=== PATIENT | female | born 1985 | race Asian ===

== ENCOUNTER 2024-05-29 06:16 | Day surgery (SDC) | payer OTHER ==
[2024-05-29 06:48] LABS: HCG UR QUAL NEGATIVE
[2024-05-29] MEDS: LACTATED RINGERS 1,000 ML IV ONE (06:53)
[2024-05-29] MEDS: ACETAMINOPHEN 325 MG TABLET PO ONE (06:54)
[2024-05-29] MEDS ORDERED: BUPIVACAINE 0.5% PF 10 ML VIAL ONE (07:06)
[2024-05-29] MEDS ORDERED: POTASSIUM IODIDE/IODINE 14 ML SOLUTION ONE (07:06)
[2024-05-29] MEDS ORDERED: PROPOFOL 200 MG/20 ML VIAL IVP ONE (07:09)
[2024-05-29] MEDS ORDERED: LIDOCAINE-PF 2% 10 ML AMP SUBQ ONE (07:09)
[2024-05-29] MEDS ORDERED: MIDAZOLAM 2 MG/2 ML VIAL ONE (07:09)
[2024-05-29] MEDS ORDERED: fentaNYL 100 MCG/2 ML VIAL ONE (07:10)
[2024-05-29] MEDS ORDERED: BUPIVACAINE 0.5%-EPI 1:200000 PF 10 ML VIAL ONE (07:12)
[2024-05-29] MEDS ORDERED: ATROPINE ABBOJECT 1 MG/10 ML SYRINGE IVP PRN (07:30)
[2024-05-29] MEDS ORDERED: fentaNYL 100 MCG/2 ML VIAL IVP PRN (07:30)
[2024-05-29] MEDS ORDERED: METOCLOPRAMIDE 10 MG/2 ML VIAL IVP PRN (07:30)
[2024-05-29] MEDS ORDERED: ePHEDrine 50 MG/ML VIAL IVP PRN (07:30)
[2024-05-29] MEDS ORDERED: NALOXONE 0.4 MG/ML VIAL IVP PRN (07:30)
[2024-05-29] MEDS ORDERED: ONDANSETRON 4 MG/2 ML VIAL IVP PRN (07:30)
[2024-05-29] MEDS ORDERED: HYDROmorphone 0.5 MG/0.5 ML SYRINGE IVP PRN (07:30)
[2024-05-29] MEDS ORDERED: MORPHINE 2 MG/ML CARPUJECT IVP PRN (07:30)
--- NOTE | 2024-05-29 07:30 | ANESTHESIA ---
Pre-Anesthesia VS, & Labs - Diagnosis cin2 - Procedure LEEP Vital Signs: Temp Pulse Resp BP Pulse Ox O2 Flow Rate 36.3 C L 67 23 111/79 97 05/29/24 06:55 05/29/24 06:55 05/29/24 06:55 05/29/24 06:55 05/29/24 06:55 Height: 5 ft 2 in Weight (kg): 95.5 kg Body Mass Index: 38.5 BMI Classification: Obese - NPO >8 hours - Is Patient ?: No - Lab Results Current Lab Results: Laboratory Tests 05/29/24 07:10: POC Whole Bld Glucose 141 H Lab results reviewed: Yes Home Medications and Allergies Home Medications: Ambulatory Orders Methylphenidate HCl 20 mg PO DAILY PRN 05/24/24 Semaglutide [Ozempic] 2 mg SUBQ OAW 05/24/24 metFORMIN [Glucophage] 500 mg PO DAILY 05/24/24 Methylphenidate HCl 20 mg PO DAILY PRN 05/24/24 Semaglutide [Ozempic] 2 mg SUBQ OAW 05/24/24 metFORMIN [Glucophage] 500 mg PO DAILY 05/24/24 Allergies/Adverse Reactions: Allergies Allergy/AdvReac Type Severity Reaction Status Date / Time amoxicillin Allergy Rash Verified 05/24/24 11:22 cephalexin [From Keflex] Allergy Rash Verified 05/24/24 11:22 melon Allergy Rash Verified 05/29/24 07:02 blue cheese Allergy Nausea Uncoded 05/29/24 07:02 Anes History & Medical History - Anesthetic History Anesthesia Complications: reports: No previous complications Family history of Anesthesia Complications: Denies - Medical History Cardiovascular: reports: None Pulmonary: reports: None Gastrointestinal: reports: None (ozempic 3 weeks ago; bs 140s this am) Urinary: reports: None Musculoskeletal: reports: None Endocrine/Autoimmune: reports: Type 2 diabetes Skin: reports: None Smoking Status: Never smoker Psychosocial: reports: No issues indicated - Surgical History Gynecologic: reports: LEEP (Cervical surgery) Orthopedic: reports: Other Results - EKG Results EKG Comparison: Reviewed EKG Exam General: Alert, Oriented x3 Dental: WNL Mouth Openin Fingerbreadth Neck Mobility: Normal Mallampati classification: II Thyromental Distance: 4-6 cm Respiratory: Lungs clear Cardiovascular: Regular rate Plan Anesthesia Type: General Consent for Procedure(s) Verified and Reviewed: Yes Code Status: Attempt Resuscitation ASA classification: 2-Mild systemic disease Is this case an emergency?: No
[2024-05-29] MEDS: BUPIVACAINE 0.5%-EPI 1:200000 PF 30 ML VIAL SUBQ ONE ×2 (07:59)
[2024-05-29] MEDS ORDERED: LACTATED RINGERS 1,000 ML IV SCH (08:00)
[2024-05-29] MEDS ORDERED: ONDANSETRON 4 MG/2 ML VIAL ONE (08:05)
[2024-05-29] MEDS: LACTATED RINGERS 300 ML IV ONE (08:29)
--- NOTE | 2024-05-29 08:41 | OPERATIVE REPORT ---
Operative Report - General Procedure Date: 05/29/24 - Other Other Information/Narrative: DATE OF PROCEDURE: 05/29/2024 Surgeon: Mary Morocho MD Assistants: none Pre-Op Diagnosis: GITA 2 Post-Op Diagnosis: Same Procedures: LEEP, ECC Findings: Shortened cervix (approximately 1cm in length), uterus appropriate size and mobile, no adnexal masses. Unable to visualize IUD strings. Specimens: First pass notched at 6 o'clock, top hat notched at 6 o'clock, ECC Anesthesia Technique: General Estimated Blood Loss: 1cc Blood Replacement: none Fluid Replacement: 600cc Drains: RN drained bladder with straight catheter prior to start of procedure, 100cc Complications: none Condition: stable Procedure Details: The patient was taken to the operating room and general anesthesia was administered. Patient was then placed in the dorsal lithotomy position in Mahad stirrips and draped in the usual sterile fashion. A bimanual exam was performed. The coated speculum was placed in the vagina with good visualization of the cervix. Lugol's solution was applied to the cervix to demarcate the area of excision. A paracervical block was placed with 10cc of 0.5% bupivicaine with epinephrine. The Loop electrosurgical device with a 2x1 cm loop was used to remove the transformation zone. A top hat was then performed with the 1x1cm square loop. The cervical bed was cauterized with the roller ball to coagulate. ECC was performed. Monsels was placed on the cervical bed. Hemostasis was noted. No evidence of injury to the vagina, perineum, bowel, or bladder. The patient tolerated the procedure well and was returned to the PACU in stable condition. Mary Morocho MD
[2024-05-29 09:24] VITALS: BP 116/81
[2024-05-29 09:36] VITALS: O2SAT 96
--- NOTE | 2024-05-29 14:17 | ANESTHESIA POST OP EVALUATION ---
Anesthesia Post Eval - Post Anesthesia Eval Vitals: Last Vital Signs Temp 36.3 C L 05/29/24 09:32 Pulse 64 05/29/24 09:32 Resp 18 05/29/24 09:32 BP 116/81 H 05/29/24 09:32 Pulse Ox 96 05/29/24 09:32 O2 Flow Rate CV Function Including HR & BP: Stable Pain Control: Satisfactory Nausea & Vomiting: Negative Mental Status: Baseline Respiratory Status: Airway Patent Hydration Status: Satisfactory Anesthesia Complications: None
== END 2024-05-29 06:17 | disposition home or self-care (01) ==
LOC: SDS 06:16
PROVIDERS: ATTEND Obstetrics & Gynecology
PROC: 0UBC7ZX Excision of Cervix, Via Natural or Artificial Opening, Diagnostic (ICD-10-PCS; principal; 2024-05-29 07:30)
DX: D06.9 Carcinoma in situ of cervix, unspecified (principal); E66.9 Obesity, unspecified; E11.9 Type 2 diabetes mellitus without complications; Z68.38 Body mass index [BMI] 38.0-38.9, adult; Z79.84 Long term (current) use of oral hypoglycemic drugs; Z79.85 Long-term (current) use of injectable non-insulin antidiabetic drugs
CPT/HCPCS: 57522; 81025; A9270; J7120